=== PATIENT | male | born 1965 | race Caucasian/White ===

== ENCOUNTER 2021-04-06 08:13 | Emergency (ER) | payer BC, OTHER ==
[~2021-04-06] VITALS: Ht 180.3 cm; Wt 104.3 kg
[2021-04-06 08:55] LABS: ABSOLUTE NEUTROPHILS 3.1 thou/uL (1.4-8.2); BASOPHILS 0.6 % (0.0-2.0); EOSINOPHILS 6.6 % (0.0-3.0); HEMATOCRIT 43.3 % (42.0-52.0); HEMOGLOBIN 14.7 gm/dL (14.0-18.0); LYMPHOCYTES 28.8 % (24.0-44.0); MCH 31.8 pg (26.0-34.0); MCHC 33.9 g/dL (28.0-37.0); MCV 93.9 fL (80.0-100.0); PLATELET COUNT 241 thou/uL (150-400); RBC 4.61 mil/uL (4.50-6.00); RDW 12.5 % (10.5-14.5); WBC 5.7 thou/uL (4.0-11.0)
[2021-04-06 09:12] LABS: CREATININE 1.1 mg/dL (0.7-1.3); POTASSIUM 4.8 mmol/L (3.5-5.1)
[2021-04-06 09:22] LABS: ALBUMIN 3.5 g/dL (3.4-5.0); TOTAL BILIRUBIN 0.5 mg/dL (0.2-1.0)
[2021-04-06 09:45] VITALS: BP 138/95
[2021-04-06] MEDS ORDERED: PREDNISONE 20 M20 MG PO (10:22)
[2021-04-06] MEDS ORDERED: BACTRIM DS TAB1 EACH PO (10:25)
[2021-04-06] MEDS ORDERED: CEPHALEXIN500 MG PO (10:25)
--- NOTE | 2021-04-06 16:11 | EKG ---
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
== END 2021-04-06 10:30 | disposition home or self-care (01) ==
LOC: ER 08:13
PROVIDERS: Emergency Medicine
DX: T63.441A Toxic effect of venom of bees, accidental (unintentional), initial encounter (principal); Z20.822 Contact with and (suspected) exposure to COVID-19; L03.113 Cellulitis of right upper limb; Z90.89 Acquired absence of other organs; Y92.89 Other specified places as the place of occurrence of the external cause